=== PATIENT | male | born 1995 | race Hispanic/Latino ===

== ENCOUNTER 2017-08-11 20:53 | Emergency (ER) | payer SELFPAY ==
[2017-08-11 20:57] VITALS: TEMP 98.6
--- NOTE | 2017-08-11 21:21 | ED PDOC ---
HPI: Psych/Substance Abuse Time Seen by Provider: 08/11/17 20:56 Chief Complaint (Nursing): Substance Abuse Chief Complaint (Provider): substance abuse History Per: Patient, EMS Additional Complaint(s): 22 y/o male brought in by EMS for substance abuse. Patient admits to using PCP tonight; [place] and said he needed to come with them. Patient awake, alert, oriented x3. Denies acute medical or psychiatric complaints. Past Medical History Reviewed: Historical Data, Nursing Documentation, Vital Signs Vital Signs: Last Vital Signs Temp 98.6 F 08/11/17 20:54 Pulse 98 H 08/11/17 20:54 Resp 16 08/11/17 20:54 BP 144/98 H 08/11/17 20:54 Pulse Ox 99 08/11/17 20:54 - Medical History PMH: No Chronic Diseases - Surgical History Surgical History: No Surg Hx - Family History Family History: States: No Known Family Hx - Immunization History Hx Tetanus Toxoid Vaccination: No Hx Influenza Vaccination: No Hx Pneumococcal Vaccination: No - Home Medications Home Medications: Ambulatory Orders Medication Instructions Recorded No Known Home Med 05/02/17 - Allergies Allergies/Adverse Reactions: Allergies Allergy/AdvReac Type Severity Reaction Status Date / Time No Known Allergies Allergy Verified 05/02/17 17:02 Review of Systems ROS Statement: Except As Marked, All Systems Reviewed And Found Negative Physical Exam - Reviewed Nursing Documentation Reviewed: Yes Vital Signs Reviewed: Yes - Physical Exam Appears: Positive for: Well, Non-toxic, No Acute Distress Head Exam: Positive for: ATRAUMATIC, NORMAL INSPECTION, NORMOCEPHALIC Skin: Positive for: Normal Color Eye Exam: Positive for: Normal appearance ENT: Positive for: Normal ENT Inspection Cardiovascular/Chest: Positive for: Regular Rate, Rhythm Respiratory: Positive for: Normal Breath Sounds Gastrointestinal/Abdominal: Positive for: Normal Exam Back: Positive for: Normal Inspection Extremity: Positive for: Normal ROM Neurologic/Psych: Positive for: Alert, Oriented - ECG O2 Sat by Pulse Oximetry: 99 - Progress ED Course And Treament: accucheck Patient AAOx3. Ambulating steady gait. Requesting to go home. Patient requires no further intervention in the ED and is stable for discharge Disposition - Clinical Impression Clinical Impression: Substance abuse - Patient ED Disposition Is Patient to be Admitted: No Counseled Patient/Family Regarding: Studies Performed, Diagnosis, Need For Followup - Disposition Disposition: Routine/Home Disposition Time: 21:21 Condition: STABLE Instructions: Drug Abuse and Drug Addiction (DC)
[2017-08-11 21:32] VITALS: BP 118/95; PULSE 85; RESP 18; O2SAT 97
== END 2017-08-11 21:40 | disposition home or self-care (01) ==
LOC: H.ER 20:53
DX: F16.10 Hallucinogen abuse, uncomplicated (principal)

== ENCOUNTER 2017-10-18 19:55 | Emergency (ER) | payer SELFPAY ==
--- NOTE | 2017-10-18 20:49 | ED PDOC ---
HPI: Psych/Substance Abuse Time Seen by Provider: 10/18/17 20:14 Chief Complaint (Nursing): Substance Abuse Chief Complaint (Provider): Substance Abuse History Per: Patient History/Exam Limitations: no limitations Onset/Duration Of Symptoms: Hrs Current Symptoms Are (Timing): Still Present Suicide/Self Injury Attempted (Context): None Modifying Factor(s): Alcohol, Marijuana, Narcotics (PCP) Additional Complaint(s): 22 y/o male with no significant PMHx brought to the ED via EMS for evaluation of substance abuse. Patient found ambulating in the streets speaking non- sensically. Patient is currently in PD custody for drug possession. Patient admits to marijuana and PCP use prior to arrival. Patient also admits to ingesting a twelve pack of beer prior to arrival. Patient offers no complaints at this time. Denies trauma. PMD: No Provider Past Medical History Reviewed: Historical Data, Nursing Documentation, Vital Signs Vital Signs: Last Vital Signs Temp 98.1 F 10/18/17 20:01 Pulse 116 H 10/18/17 20:01 Resp 14 10/18/17 20:01 BP 145/94 H 10/18/17 20:01 Pulse Ox 99 10/18/17 20:01 - Medical History PMH: No Chronic Diseases - Surgical History Surgical History: No Surg Hx - Family History Family History: States: Unknown Family Hx - Social History Current smoker - smoking cessation education provided: Yes (10 cigarettes per day) Alcohol: Social Drugs: Other (Marijuana and PCP) - Home Medications Home Medications: Ambulatory Orders Medication Instructions Recorded No Known Home Med 05/02/17 - Allergies Allergies/Adverse Reactions: Allergies Allergy/AdvReac Type Severity Reaction Status Date / Time No Known Allergies Allergy Verified 05/02/17 17:02 Review of Systems ROS Statement: Except As Marked, All Systems Reviewed And Found Negative Psych: Positive for: Other (Substance Abuse) Physical Exam - Reviewed Nursing Documentation Reviewed: Yes Vital Signs Reviewed: Yes - Physical Exam Comments: GENERAL APPEARANCE: Patient is calm but intoxicated with an odor of alcohol and slurred speech, awake, alert, oriented x 2 (person and place), in no acute distress. SKIN: Warm, dry; (-) cyanosis HEAD: (-) scalp swelling, (-) scalp tenderness. EYES: (+) conjunctival injection, (-) scleral icterus, (-) nystagmus. ENMT: Mucous membranes moist. Airway patent: (-) stridor. NECK: (-) tenderness, (-) stiffness, (-) lymphadenopathy. HEART AND CARDIOVASCULAR: (-) irregularity; (-) murmur, (-) gallop. CHEST AND RESPIRATORY: (-) rales, (-) rhonchi, (-) wheezes; breath sounds equal. ABDOMEN: Soft, (-) distention, (-) tenderness, (-) guarding. NEURO AND PSYCH: Mental status as above. 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 Pupils equal and reactive; EOMI; (-) facial asymmetry ; tongue and uvula midline. Strength and DTRs symmetric. - ECG O2 Sat by Pulse Oximetry: 99 (RA) Pulse Ox Interpretation: Normal Medical Decision Making Medical Decision Making: Time: 2034 Impression: Substance Abuse Plan: -- Alcohol Serum -- Urine Drug Screen -- Accucheck 2100 Serum Alcohol: 124 2120 Utox: (+) PCP and (+) cannabinoids Accucheck: 87 2130 Repeat HR: 85 Repeat BP: 142/85 2200 On re-evaluation, patient has no complaints at present. On exam, patient now AAOx3, in no acute distress. Lungs clear to auscultation, cardiac RRR, abdomen soft, non-tender, repeat neuro exam shows no focal findings. Gait steady in ED without assistance VSS, stable for discharge. Lab/Diagnostic results d/w the patient in great detail. Diagnosis of substance abuse, alcohol intoxication d/w the patient. Based on history, exam and diagnostic results, plan will be for discharge into PD custody. Patient was observed in ED for 2 hours with no evidence of neurological deterioration. Patient instructed to follow-up with pmd / referral provided / the clinic in 1- 2 days without fail. Advised to take medication as prescribed. Return to the emergency room at any time for any new or worsening symptoms. Patient states he fully agrees with and understands discharge instructions. States that he agrees with the plan and disposition. Verbalized and repeated discharge instructions and plan. I have given the patient opportunity to ask any additional questions. Scribe Attestation: Documented by Yuriy Kim acting as a scribe for Chapis Dang PA-C. Provider Scribe Attestation: All medical record entries made by the Scribe were at my direction and personally dictated by me. I have reviewed the chart and agree that the record accurately reflects my personal performance of the history, physical exam, medical decision making, and the department course for this patient. I have also personally directed, reviewed, and agree with the discharge instructions and disposition. Disposition - Clinical Impression Clinical Impression: Alcohol intoxication, PCP abuse, Polysubstance abuse - Patient ED Disposition Is Patient to be Admitted: No Counseled Patient/Family Regarding: Studies Performed, Diagnosis, Smoking Cessation - Disposition Referrals: [facility] [Outside] Disposition: Discharged/Transfer to Law Enforcement Disposition Time: 22:04 Condition: STABLE Additional Instructions: The emergency medical care you received today was directed towards the acute presenting symptoms. If you were prescribed any medication, please fill it and give as directed. It may take several days for your symptoms to resolve. Return to the Emergency Department at any time if symptoms worsen, do not improve, or if any other problems arise. Please contact your doctor in 2 days for re-evaluation and follow up / or call one of the physicians/clinics you have been referred to that are listed on the Patient Visit Information form that is included in your discharge packet. Bring any paperwork you were given at discharge with you along with any medications to your follow up visit. Our treatment cannot replace ongoing medical care by a primary care provider (PCP) outside of the emergency department. Instructions: Polysubstance Abuse, Alcohol Abuse and Alcoholism (DC), Polysubstance Abuse (DC), Drug Abuse Treatment, Drug Abuse and Drug Addiction ( DC) Forms: [employer] (Mongolian) Print Language: EAST TIM[place]ESE - POA Present On Arrival: None Results - Lab Results Lab Results: 10/18/17 10/18/17 20:35 20:35 Urine Opiates Screen Negative Urine Methadone Screen Negative Ur Barbiturates Screen Negative Ur Phencyclidine Scrn Positive H Ur Amphetamines Screen Negative U Benzodiazepines Scrn Negative U Oth Cocaine Metabols Negative U Cannabinoids Screen Positive H Alcohol, Quantitative 124 H
[2017-10-18 21:04] LABS: BARBITURATES, UR NEGATIVE (NEGATIVE); BENZODIAZEPINES, UR NEGATIVE (NEGATIVE); OPIATES, UR NEGATIVE (NEGATIVE); PHENCYCLIDINE, UR POSITIVE (NEGATIVE)
[2017-10-18 21:30] VITALS: BP 142/85; PULSE 85; RESP 18; TEMP 98.2
[2017-10-18 21:34] VITALS: O2SAT 99
== END 2017-10-18 22:11 | disposition home or self-care (01) ==
LOC: H.ER 19:55
DX: F10.129 Alcohol abuse with intoxication, unspecified (principal); F16.10 Hallucinogen abuse, uncomplicated; F19.10 Other psychoactive substance abuse, uncomplicated; Y90.6 Blood alcohol level of 120-199 mg/100 ml; F17.210 Nicotine dependence, cigarettes, uncomplicated
CPT/HCPCS: 82948; 99284; G0480